=== PATIENT | male | born 1970 | race Caucasian/White ===

== ENCOUNTER 2018-08-22 01:10 | Emergency (ER) | payer MEDICAID ==
[~2018-08-22] VITALS: Wt 78.9 kg
[2018-08-22] MEDS ORDERED: SOD CHLORIDE 0.9% 1,000 ML IV STA (01:21)
[2018-08-22] MEDS ORDERED: morphine 4 MG/ML VIAL IV STA (01:21)
[2018-08-22] MEDS ORDERED: ONDANSETRON 4 MG INJ IV STA (01:21)
[2018-08-22] MEDS ORDERED: CEFTRIAXONE 1 GM/50 ML (PMX) 50 ML IVPB ONE (03:30)
[2018-08-22] MEDS ORDERED: TRAM50TA2 PO (05:41)
[2018-08-22] MEDS ORDERED: CIPR500T4 PO (05:41)
[2018-08-22 06:07] VITALS: BP 117/78; PULSE 72; RESP 18
--- NOTE | 2018-10-01 01:30 | ERD ---
ER Documentation Chief Complaint Chief Complaint FLANK PAIN, DYSURIA X'S 3 HOURS HPI Is a 48 flank pain dysuria for the past 3 hours. Pain is mild to moderate intensity. Mild nausea but no vomiting. No fevers no chills. No other current complaints. ROS All systems reviewed and are negative except as per history of present illness. Medications Home Meds Active Scripts Tramadol HCl (Tramadol HCl) 50 Mg Tablet, 50 MG PO Q4 PRN for PAIN, #20 TAB Prov:CRISTAL PHIPPS Taye. 08/22/18 Ciprofloxacin Hcl* (Ciprofloxacin Hcl*) 500 Mg Tablet, 500 MG PO BID for 7 Days, TAB Prov:CRITSAL PHIPPS S. 08/22/18 Allergies Allergies: Coded Allergies: No Known Allergy (Unverified , 08/22/18) PMhx/Soc Medical and Surgical Hx: pt denies Medical Hx, pt denies Surgical Hx History of Surgery: No Anesthesia Reaction: No Hx Neurological Disorder: No Hx Respiratory Disorders: No Hx Cardiac Disorders: No Hx Psychiatric Problems: No Hx Miscellaneous Medical Probl: No Hx Alcohol Use: Yes Hx Substance Use: No Hx Tobacco Use: No Smoking Status: Never smoker Physical Exam Physical Exam Const: No acute distress Head: Atraumatic Eyes: Normal Conjunctiva ENT: Normal External Ears, Nose and Mouth. Neck: Full range of motion. No meningismus. Resp: Clear to auscultation bilaterally Cardio: Regular rate and rhythm, no murmurs Abd: Soft, non tender, non distended. Normal bowel sounds Skin: No petechiae or rashes Back: No midline or flank tenderness Ext: No cyanosis, or edema Neur: Awake and alert Psych: Normal Mood and Affect Results 24 hrs Laboratory Tests Test 08/22/18 01:37 08/22/18 01:38 Sodium Level 144 mmol/L Potassium Level 3.8 mmol/L Chloride Level 109 mmol/L Carbon Dioxide Level 24 mmol/L Anion Gap 11 Blood Urea Nitrogen 16 mg/dl Creatinine 0.90 mg/dl Est Glomerular Filtrat Rate mL/min > 60 mL/min Glucose Level 124 mg/dl Calcium Level 9.1 mg/dl Total Bilirubin 0.3 mg/dl Direct Bilirubin 0.00 mg/dl Indirect Bilirubin 0.3 mg/dl Aspartate Amino Transf (AST/SGOT) 25 IU/L Alanine Aminotransferase (ALT/SGPT) 26 IU/L Alkaline Phosphatase 98 IU/L Total Protein 7.7 g/dl Albumin 4.5 g/dl Globulin 3.20 g/dl Albumin/Globulin Ratio 1.40 Lipase 138 U/L White Blood Count 9.4 10^3/ul Red Blood Count 5.14 10^6/ul Hemoglobin 13.9 g/dl Hematocrit 42.6 % Mean Corpuscular Volume 82.9 fl Mean Corpuscular Hemoglobin 27.0 pg Mean Corpuscular Hemoglobin Concent 32.6 g/dl Red Cell Distribution Width 13.8 % Platelet Count 408 10^3/UL Mean Platelet Volume 10.0 fl Immature Granulocytes % 0.300 % Neutrophils % 76.5 % Lymphocytes % 8.9 % Monocytes % 8.2 % Eosinophils % 5.7 % Basophils % 0.4 % Nucleated Red Blood Cells % 0.0 /100WBC Immature Granulocytes # 0.030 10^3/ul Neutrophils # 7.2 10^3/ul Lymphocytes # 0.8 10^3/ul Monocytes # 0.8 10^3/ul Eosinophils # 0.5 10^3/ul Basophils # 0.0 10^3/ul Nucleated Red Blood Cells # 0.0 10^3/ul Urine Color YELLOW Urine Clarity TURBID Urine pH 6.0 Urine Specific Bud 1.021 Urine Ketones NEGATIVE mg/dL Urine Nitrite NEGATIVE mg/dL Urine Bilirubin NEGATIVE mg/dL Urine Urobilinogen NEGATIVE mg/dL Urine Leukocyte Esterase 1+ Radha/ul Urine Microscopic RBC > 182 /HPF Urine Microscopic WBC 142 /HPF Urine Bacteria FEW /HPF Urine Hemoglobin 3+ mg/dL Urine Glucose NEGATIVE mg/dL Urine Total Protein 2+ mg/dl Current Medications Medications Dose Sig/Maeve Start Time Status Last (Trade) Ordered Route PRN Stop Time Admin Dose Reason Admin Sodium 1,000 ml @ Q1H STAT 08/22/18 DC 08/22/18 Chloride 1,000 mls/hr IV 01:21 01:41 08/22/18 02:20 Morphine 4 mg ONCE STAT 08/22/18 DC 08/22/18 Sulfate IV 01:21 01:42 (morphine) 08/22/18 01:22 Ondansetron 4 mg ONCE STAT 08/22/18 DC 08/22/18 HCl (Zofran IV 01:21 01:42 Inj) 08/22/18 01:22 Ceftriaxone 50 ml @ ONCE ONCE 08/22/18 DC 08/22/18 Sodium 100 mls/hr IVPB 03:30 03:36 08/22/18 03:59 Procedures/MDM Patient's gastrointestinal symptoms have stabilized while in the department. No evidence of severe dehydration, sepsis, or surgical abdomen. Extensive discussion with family and patient that occult disease cannot be ruled out. 8 hour recheck for repeat abdominal exam is planned. Departure Diagnosis: Primary Impression: Flank pain Condition: Stable Patient Instructions: Understanding Urinary Tract Infections (UTIs) CRISTAL PHIPPS Oct 01, 2018 01:30
== END 2018-08-22 06:22 | disposition home or self-care (01) ==
LOC: E/R 01:10
DX: R10.9 Unspecified abdominal pain (principal); R11.0 Nausea
CPT/HCPCS: 36415; 74176; 80053; 81001; 83690; 85025; 87086; 96361; 96365; 96366; 96375; J0696; J2270; J2405; J7030; Z7502